=== PATIENT | female | born 1980 | race Caucasian/White ===

== ENCOUNTER 2025-04-28 09:46 | Emergency (ER) | payer OTHER, MEDICAID ==
[~2025-04-28] VITALS: Ht 162.6 cm; Wt 67.0 kg
[2025-04-28 09:50] VITALS: O2SAT 100
[2025-04-28] MEDS: ACETAMINOPHEN 325MG TABLET PO ONE (10:25)
[2025-04-28] MEDS ORDERED: TOPUD PO (11:23)
[2025-04-28 11:26] LABS: BASOPHILS % 0.6 % (0.0-2.0); EOSINOPHILS % 0.5 % (0.0-5.0); HEMATOCRIT. 35.3 % (36.0-48.0); HEMOGLOBIN. 11.7 g/dL (12.0-16.0); LYMPHOCYTES % 11.1 % (20.0-50.0); MEAN PLATELET VOLUME 8.2 fl (7.4-10.4); MONOCYTES % 4.9 % (2.0-8.0); NEUTROPHILS % 82.9 % (40.0-76.0); PLATELET 314 x1000/uL (130-400); RED BLOOD CELL COUNT 4.04 mill/uL (4.2-5.4); RED CELL DISTRIBUTION WIDTH 14.5 % (11.6-14.6)
[2025-04-28 11:41] LABS: HCG SCREEN NEGATIVE
[2025-04-28 11:42] LABS: CREATININE 0.9 mg/dL (0.6-1.0); UREA NITROGEN BLOOD 9 mg/dL (9-23)
[2025-04-28 11:53] VITALS: BP 118/74; PULSE 99; RESP 16; TEMP 36.9; O2SAT 100
== END 2025-04-28 11:54 | disposition home or self-care (01) ==
LOC: ER 09:46
DX: R10.11 Right upper quadrant pain (principal); R07.89 Other chest pain; V49.9XXA Car occupant (driver) (passenger) injured in unspecified traffic accident, initial encounter; Y93.89 Activity, other specified; Y92.89 Other specified places as the place of occurrence of the external cause; Y99.8 Other external cause status
CPT/HCPCS: 36415; 71045; 74176; 80048; 81025; 84703; 85025; 99284